=== PATIENT | male | born 2000 | race Caucasian/White ===

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

== ENCOUNTER 2024-12-04 06:24 | Emergency (ER) | payer OTHER, SELFPAY ==
--- OUTSIDE RECORDS SUMMARY | 2005-12-01 | XMS_ITS | Encounter Summary ---
Author Organization [facility] Address [address] [place] [id number] Care Team Providers Care Skirt Clipper Name Role Phone Unavailable Primary Care Provider Unavailabl e Encounter Details Date Type Department Care Team (Late st Contact Info) Description 12/01/2005 Hospital Encounter [facility] Division of Gastroenterology, Hepatology and Nutrition [address] [place] [id number] Social History Tobacco Use Types Packs/Day Years Used Date Smoking Tobacco: Never Assessed Sex and Gender Information Value Date Recorded Sex Assigned at Not on file Legal Sex Male 5:18 AM EST Gender Identity Not on file Sexual Orientation Not on file documented as of this encounter Plan of Treatment Not on file documented as of this encounter Visit Diagnoses Not on filedocumented in this encounter
--- OUTSIDE RECORDS SUMMARY | 2024-12-04 07:20 | XMS_ITS | Patient Health Record ---
[facility] Address [address] [place] [id number] Care Team Providers Care Outside Sales Engineer Name Role Phone Veronica Ahumada Primary Care Provider Medications Medication SIG (Take, Route, Fr equency, Duration) Notes Start Date End Date Status Meclizine HCl 25 MG 1 tab(s) orally 3 times a day 03/14/2019 Active Immunizations Vaccine Route Administration Date Status Comme nts IPV IM Intramuscular 11/24/2005 Administered MMR SC Subcutaneous 11/24/2005 Administered Tetanus Dtap-Daptacel (under 7yrs) IM Intramuscular 11/24/2005 Administered Tetanus Tdap-Adacel (over 7yrs) IM Intramuscular 11/17/2012 Administered Varivax IM Intramuscular 11/17/2012 Administered Menactra IM Intramuscular 11/17/2012 Administered Problems No Known Problems Plan Of Treatment No Information Insurance Providers Payer Name Payer Address Payer Phone Subscriber Number Group Number Insured Name Patient Relationship to Insured Coverage Start Date Coverage End Date [employer] [address] [place] [address] [phone] [id number] MARTIN ROB III Self - patient is the insured Medical (General) History Medical History History ICD Code gastroenteritis allergies-grass Surgical History Surgery Date(Month/Year) Bilateral PE tubes 04/14 tonsillectomy 2007 Hospitalization History Reason Date(Month/Year) gastroenteritis 06/04/04
--- OUTSIDE RECORDS SUMMARY | 2024-12-04 07:20 | XMS_ITS | Clinical Summary ---
Author Organization [facility] Address [address] [place] [address] Phone [email or web address] Care Team Providers Care Snuff Box Finisher Name Role Phone Unavailable Primary Care Provider Unavailabl e Allergies No known active allergies Medications No known medications Active Problems No known active problems Social History Tobacco Use Types Packs/Day Years Used Date Smoking Tobacco: Former E-Cigarettes Smokeless Tobacco: Never Intimate Partner Violence Answer Date R ecorded Insults You Not on file 10/21/2020 Threatens You Not on file 10/21/2020 Screams at You Not on file 10/21/2020 Physically Hurt Not on file 10/21/2020 Intimate Partner Violence Score Not on file 10/21/2020 Stress Answer Date Recorded Stress in your Life Not on file 01/12/2024 Dealing with Stress 3 01/12/2024 Sex and Gender Information Value Date Recorded Sex Assigned at Not on file Legal Sex Male 2:48 PM CDT Gender Identity Not on file Sexual Orientation Not on file Last Filed Vital Signs Vital Sign Reading Time Taken Comments Blood Pressure - - Pulse 81 10/22/2020 7:18 PM EDT Temperature 36.8 C (98.2 F) 10/22/2020 7:18 PM EDT Respiratory Rate - - Oxygen Saturation 98% 10/22/2020 7:18 PM EDT Inhaled Oxygen Concentration - - Weight - - Height - - Body Mass Index - - Plan of Treatment Health Maintenance Due Date Last Done Comments Dental Cleaning/Exam 2001 HIV Screening 2001 Hepatitis C Screening 2001 HPV Immunization (1 - Male 3 -dose series) 2016 Men B Immunization (1 of 2 - Standard) 2017 Annual Preventive Exam 10/30/2019 Hep B Infection Screening - Triple Screen 10/30/2019 Hepatitis B Immunization (1 of 3 - 19+ 3-dose series) 2020 Tetanus Diphtheria and Pertu ssis Immunization (1 - Tdap) 2020 Covid-19 Immunization (1 - 2 024-25 season) 2024 Influenza Immunization (#1) 2024 HIB Immunization Aged Out No longer e ligible based on patient's age to complete this topic Hepatitis A Immunization Aged Out No longer eligible based on patient's age to complete this topic Meningococcal Immunization Aged Out N o longer eligible based on patient's age to complete this topic Pneumococcal Immunization Aged Out No longer eligible based on patient's age to complete this topic Polio Immunization Aged Out No longer eligible based on patient's age to complete this topic Varicella Immunization Aged Out No lo nger eligible based on patient's age to complete this topic Insurance OPT OUT NO COPAY NB
--- OUTSIDE RECORDS SUMMARY | 2024-12-04 07:20 | XMS_ITS | Clinical Summary ---
Author Organization [facility] Address [address] [place] [id number] Care Team Providers Care Scientific Process Operator Name Role Phone Unavailable Primary Care Provider Unavailabl e Source Comments [facility] is fully rolled out with thefollowing exceptions:General Clinical Research [facility] Social History Tobacco Use Types Packs/Day Years Used Date Smoking Tobacco: Never Assessed Sex and Gender Information Value Date Recorded Sex Assigned at Not on file Legal Sex Male 5:18 AM EST Gender Identity Not on file Sexual Orientation Not on file Plan of Treatment Health Maintenance Due Date Last Done Comments MMR IMMUNIZATION (1 of 1 - S tandard series) 2002 DTAP/Tdap/Td IMMUNIZATION (1 - Tdap) 2008 VARICELLA IMMUNIZATION (1 of 2 - 13+ 2-dose series) 2014 HPV IMMUNIZATION (1 - Male 3 -dose series) 2016 MENINGOCOCCAL B VACCINE (1 o f 2 - Standard) 2017 HEPATITIS B IMMUNIZATION (1 of 3 - 19+ 3-dose series) 2020 AMB SEASONAL FLU VACCINE (#1) 11/06/2024 COVID-19 Vaccine (1 - 2023-2 5 season) 2024 HIB IMMUNIZATION Aged Out No longer e ligible based on patient's age to complete this topic IPV IMMUNIZATION Aged Out No longer e ligible based on patient's age to complete this topic MCV4 IMMUNIZATION Aged Out No longer eligible based on patient's age to complete this topic PNEUMOCOCCAL IMMUNIZATION Aged Out No longer eligible based on patient's age to complete this topic Respiratory Syncytial Virus (RSV) <20mo Aged Out No longer eligible b ased on patient's age to complete this topic
--- NOTE | 2024-12-04 07:29 | ECG_ITS ---
APPROVED REPORT Exam: Resting ECG HR:83 bpm ECG Measurements Heart Rate 83 AXES TN 151 P 69 QRSd 93 QRS 92 QT 401 T -38 QTc 441 Conclusion SINUS RHYTHM BORDERLINE RIGHT AXIS DEVIATION [QRS AXIS > 90] MODERATE T-WAVE ABNORMALITY, CONSIDER INFERIOR ISCHEMIA [-0.1+ mV T-WAVE IN II/aVF] ABNORMAL ECG UNCONFIRMED REPORT Electronically signed by : PERLITA BLUM, 12/04/2024 23:02:27
--- NOTE | 2024-12-04 07:37 | XR_ITS ---
FINAL REPORT CLINICAL HISTORY: CP COMPARISON: None FINDINGS: CHEST 1 VIEW The heart size is normal. The mediastinum is normal. There is no focal infiltrate or edema. There are no pleural effusions. There is no pneumothorax. There is no osseous abnormality. IMPRESSION: No acute cardiopulmonary process Reviewed, Interpreted and Dictated by Jung Lizama MD Transcribed by Annelise Stephenson Authenticated and [facility]
--- NOTE | 2024-12-04 07:39 | HMH.EDCP ---
Discharge Plan Disposition Patient Disposition: Home, Self-Care Prescriptions Prescriptions: No Action cefdinir 300 MG capsule 300 mg PO BID Qty: 20 0RF ciprofloxacin-dexamethasone 7.5 ML bottle 2 drops EAR-BOTH BID 7 Days Qty: 1 0RF amoxicillin-pot clavulanate 1 EACH tablet 1 tab PO Q12H 10 Days Qty: 20 0RF Referrals Follow up/Referrals: Chaparro Cooper MD [Primary Care Provider, Medical] - See instructions Activity Restrictions/Add. Instructions Additional Instructions/Restrictions: You have been seen and evaluated in the emergency department. Please follow-up with your primary care doctor to have liver enzymes rechecked in 2 weeks. Please abstain from alcohol until this time. Clinical Impressions Clinical Impression: Chest wall contusion, Alcohol abuse, Hepatitis Print Language Print Language: Malaysian Discharge ED Provider: Izabella Cao General Chief Complaint: Arrhythmia/Palpitations Stated Complaint: Heart Palpitations; R Collar bone and Shoulder David Time Seen by Provider: 12/04/24 07:29 History of Present Illness HPI narrative: This is a 24-year-old male who denies significant past medical history presenting the emergency department with multiple complaints. Primarily, he is complaining of a atraumatic bruise on the right upper chest wall. He noticed this bruise within the past week. He states it has been changing colors, initially from purple, now to yellow. He notes a lump underneath the area that is nontender. He notes vague shortness of breath, abdominal pain, nausea. Denies any recent vomiting or diarrhea. Denies any urinary symptoms. Denies any history of recent surgery or trauma. No history of prior VTE. Related Data Previous Rx's ?Medication ?Instructions ?Recorded cefdinir 300 mg capsule 300 mg PO BID #20 caps 04/12/20 amoxicillin 875 mg-potassium 1 tab PO Q12H 10 days #20 tabs 08/06/20 clavulanate 125 mg tablet ciprofloxacin 0.3 %-dexamethasone 2 drops EAR-BOTH BID 7 days ##1 08/06/20 0.1 % ear drops,suspension Allergies Allergy/AdvReac Type Severity Reaction Status Date / Time No Known Allergies Allergy Verified 04/12/20 15:51 [facility] Disclaimer: The information contained in this section may have been updated after the patient was seen, as this information can be updated by other users. Social History Smoking Status: Current every day smoker alcohol intake: never substance use type: denies use current occupational status: employed Travel in the last 8 weeks?: None household members: family housing: house Have you lived/traveled outside [place] in past 30 days?: No Contact w/someone who lives/traveled outside US past 30 days?: No Exposure to someone with infectious disease in past 14 days?: No Do you have a fever (greater than 100.4 F or 38 C)?: No Have you tested positive for COVID-19?: No Exposed to someone with COVID-19 in past 14 days?: No Do you have a sore throat?: No Do you have a cough?: No Do you have any weakness?: No Do you have any diarrhea?: No Are you experiencing any unusual bleeding?: No Do you have any muscle aches/pain?: No Do you have any abdominal pain?: No Are you experiencing loss of taste or smell?: No Other Medical History Have you received the Flu Vaccine for this season: No Have you received the Pneumonia Vaccine: No ROS Obtained: Yes All systems reviewed & no additional complaints except as documented Physical Exam General General appearance: alert and in no apparent distress Head Head exam: atraumatic and normocephalic Eye Eye exam: Present PERRL ENT ENT exam: Present mucous membranes moist Neck Neck exam: Present normal inspection Chest Chest inspection: Present symmetric chest wall rise; Absent tenderness Respiratory Respiratory exam: Present normal lung sounds bilaterally; Absent respiratory distress, wheezes or accessory muscle use Cardiovascular Cardiovascular exam: Present regular rate and normal rhythm Abdominal Exam Abdominal exam: Present soft; Absent distention or tenderness Extremities Exam Extremities exam: Present normal inspection; Absent tenderness Neurological Exam Neurological exam: Present alert and oriented X3 Psychiatric Psychiatric exam: Present normal affect Skin Skin exam: Present warm, dry and other (Small 3 cm area of ecchymosis on the right upper chest below the right clavicle. There is a palpable nodule underneath that is fixed and nonfluctuant.) HEART Score HEART Score HEART Score assessment performed?: No Critical Care Critical Care Time Critical Care Time: No Medical Decision Making [place] Inquiry Pt receiving controlled substance: No [place] was queried for this patient: No Vital Signs Vital Signs: 12/04/24 07:43 12/04/24 09:15 Temperature 97.9 F 97.9 F Temperature Source Oral Oral Pulse Rate 87 Pulse Rate [Left Radial] 86 Respiratory Rate 17 16 Blood Pressure 126/88 Blood Pressure [Right Arm] 126/88 Blood Pressure Mean [Right Arm] 100 Blood Pressure Source Automatic Cuff Blood Pressure Source [Right Arm] Automatic Cuff Blood Pressure Position Sitting Blood Pressure Position [Right Arm] Sitting 02 Sat by Pulse Oximetry 97 Oxygen Delivery Method Room Air Room Air Lab Data Lab results reviewed: Yes I reviewed the patient's lab results. Labs: Lab Results 12/04/24 07:50: WBC 7.0, RBC 4.41 L, Hgb 14.2, Hct 42.0, MCV 95.2 H, MCH 32.2 H, MCHC 33.8, RDW 12.1, Plt Count 353, MPV 9.3, Neut % (Auto) 41.1, Lymph % (Auto) 37.0, [place] % (Auto) 15.0 H, Eos % (Auto) 4.7, Baso % (Auto) 1.3, Neut # (Auto) 2.9, Lymph # (Auto) 2.6, [place] # (Auto) 1.1 H, Eos # (Auto) 0.3, Baso # (Auto) 0.1, Sodium 145, Potassium 4.3, Chloride 100, Carbon Dioxide 34 H, Anion Gap 15.3 H, BUN 4 L, Creatinine 0.70, Estimated Creat Clear 190, Estimated GFR 140, Est GFR ( Amer) 169, Glucose 100, Calcium 8.6, Total Bilirubin 0.6, AST 311 H*, ALT 262 H, Alkaline Phosphatase 120, Total Protein 8.0, Albumin 4.2, Globulin 3.8 H, Albumin/Globulin Ratio 1.1 12/04/24 07:50 12/04/24 07:50 Response Orders (Tests/Meds): ED MEDICATIONS Discontinued Medications Generic Name Dose Route Start Last Admin Trade Name Freq PRN Reason Stop Dose Admin Acetaminophen 1,000 mg 12/04/24 07:39 12/04/24 07:55 Acetaminophen 500mg Tab PO 12/04/24 07:40 1,000 mg ONCE ONE Administration Ibuprofen 400 mg 12/04/24 07:39 12/04/24 07:55 Ibuprofen 400 Mg Tablet PO 12/04/24 07:40 400 mg ONCE ONE Administration ORDERS Category Date Time Status XR chest portable Stat Exams 12/04/24 07:37 Completed CBC w/Auto Diff [Complete Blood Count Auto Diff] Stat Lab 12/04/24 07:50 Completed CMP [Comprehensive Metabolic Panel] Stat Lab 12/04/24 07:50 Completed MDM Narrative Medical Decision Narrative: 24-year-old otherwise healthy male presenting the emergency department with atraumatic ecchymosis on the right anterior chest with associated chest wall pain. Differential diagnosis includes but is not limited to soft tissue hematoma, lymphadenopathy, lipoma, soft tissue neoplasm, underlying rib fracture, pneumothorax. Very low clinical concern for ACS. Out of an abundance of caution an EKG was obtained. EKG shows normal sinus rhythm at a rate of 83. Normal intervals. Normal axis. No STEMI. No indication for obtaining troponins. CBC shows no acute findings. Anion gap mildly elevated at 15.3. AST 311, ALT 262. Normal total bilirubin. Normal alkaline phosphatase. Benign abdominal exam. Chest x-ray with no acute findings on my exam. No obvious soft tissue abnormalities or underlying rib fracture. No pneumothorax. Patient was given Tylenol and ibuprofen for treatment of his symptoms. Of note, these medications were given prior to CMP results. I had a discussion with the patient at the bedside about his laboratory results. I explained that I am concerned they may be consistent with significant alcohol use. The patient does admit to significant alcohol use over the past few days. I discussed my concerns for his liver enzymes. I recommended that he abstain from alcohol over the next 2 weeks and have his liver enzymes rechecked. He denies any history of alcohol withdrawal. Denies daily alcohol use. Patient verbalizes understanding of the importance of decreased alcohol use. He understands to return to the emergency department should he develop jaundice, abdominal pain, fever, dark stools, or hematemesis.
[2024-12-04 07:43] VITALS: BP 126/88; PULSE 86; RESP 17; TEMP 36.6; O2SAT 97; BMI 26.6
[2024-12-04] MEDS: IBUPROFEN 400 MG TABLET PO (07:55)
[2024-12-04] MEDS: ACETAMINOPHEN 500MG TAB 1000 MG PO (07:55)
[2024-12-04 08:04] LABS: Chloride 100 mmol/L (98-107)
[2024-12-04 08:05] LABS: Albumin Level 4.2 g/dl (3.5-5.0); Potassium 4.3 mmoL/L (3.5-5.1); Sodium 145 mmol/L (136-145)
[2024-12-04 08:07] LABS: Blood Urea Nitrogen 4 mg/dl (9-20); Creatinine Clearance Estimated 190 mL/min (50-200); Creatinine,Serum 0.70 mg/dl (0.66-1.25); Estimated Glomerular Filt Rate 140 ml/min (>60); GFR (African American) 169 ML/MIN (>60)
[2024-12-04 08:08] LABS: Alanine Aminotransferase 262 U/L (12-78); Albumin/Globulin Ratio 1.1 (1.1-1.8); Alkaline Phosphatase 120 U/L (38-126); Anion Gap 15.3 mEq/L (5-15); Aspartate Amino Transferase 311 U/L (17-59); Bilirubin,Total 0.6 mg/dl (0.2-1.3); Calcium 8.6 mg/dl (8.4-10.2); Carbon Dioxide 34 mmol/L (22.0-30.0); Globulin 3.8 g/dL (1.3-3.2); Glucose 100 mg/dl (74-100); Total Protein,Serum 8.0 g/dl (6.3-8.2)
[2024-12-04 08:09] LABS: Hematocrit 42.0 % (42.0-52.0); Hemoglobin 14.2 g/dL (14.1-18.0); Immature Granulocytes % 0.9 %; Mean Corpuscular HGB Conc 33.8 g/dL (31.8-35.4); Mean Corpuscular Hemoglobin 32.2 pg (27.0-31.2); Mean Corpuscular Volume 95.2 fl (80-94); Nucleated Red Blood Cells % 0 %; Platelet Count 353 K/mm3 (142-424); Red Blood Count 4.41 M/mm3 (4.60-6.20); Red Cell Distribution Width-SD 42.7 fL; White Blood Count 7.0 K/mm3 (4.8-10.8)
[2024-12-04 09:15] VITALS: BP 126/88; PULSE 87; RESP 16; TEMP 36.6; O2SAT 98
== END 2024-12-04 09:21 | disposition home or self-care (01) ==
PROVIDERS: Emergency Provider Student in an Organized Health Care Education/Training Program; PCP Family Medicine
DX: S20.211A Contusion of right front wall of thorax, initial encounter (principal); K70.10 Alcoholic hepatitis without ascites; F10.188 Alcohol abuse with other alcohol-induced disorder; F17.210 Nicotine dependence, cigarettes, uncomplicated; X58.XXXA Exposure to other specified factors, initial encounter
CPT/HCPCS: 71045; 80053; 85025; 93005; 99283; 99284